=== PATIENT | male | born 1970 | race Caucasian/White ===

== ENCOUNTER → 2024-02-06 11:05 | Outpatient (REF) | payer OTHER, SELFPAY | LOC: HWRAD 11:05 | PROVIDERS: ATTENDING PHYSICIAN Family Medicine | DX: N45.1 Epididymitis (principal) | CPT/HCPCS: 76870; 93976 ==

== ENCOUNTER → 2024-02-24 | Outpatient (REF) | payer OTHER, SELFPAY | LOC: DHSLP | PROVIDERS: ATTENDING PHYSICIAN Internal Medicine; FAMILY PHYSICIAN Family Medicine | DX: G47.30 Sleep apnea, unspecified (principal); R06.83 Snoring | CPT/HCPCS: 95800 ==

== ENCOUNTER 2025-07-15 06:20 | Day surgery (SDC) | payer OTHER, SELFPAY | END 2025-07-15 12:19 | disposition home or self-care (01) | LOC: GI 06:20 | PROVIDERS: ATTENDING PHYSICIAN Specialist | DX: Z12.11 Encounter for screening for malignant neoplasm of colon (principal); D12.4 Benign neoplasm of descending colon; D36.10 Benign neoplasm of peripheral nerves and autonomic nervous system, unspecified; K57.30 Diverticulosis of large intestine without perforation or abscess without bleeding; Z86.0101 Personal history of adenomatous and serrated colon polyps; Z80.0 Family history of malignant neoplasm of digestive organs | CPT/HCPCS: 45385; 45380; 88305 ==